=== PATIENT | female | born 1990 | race Two or more races ===

== ENCOUNTER 2018-09-12 21:53 | Outpatient (CLI) | payer OTHER ==
[2018-09-13] MEDS ORDERED: ZANTAC300 MG PO (09:07)
[2018-09-13] MEDS ORDERED: PRENATAL TABLE1 EAC1 PO (09:07)
== END 2018-09-13 08:51 | disposition still patient (30) ==
LOC: OBS/DEL 21:53
DX: O21.8 Other vomiting complicating pregnancy (principal); Z34.03 Encounter for supervision of normal first pregnancy, third trimester

== ENCOUNTER 2018-09-13 07:59 | Inpatient (IN) | payer OTHER ==
[~2018-09-13] VITALS: Ht 165.1 cm; Wt 112.0 kg
[2018-09-13] MEDS ORDERED: ZANTAC300 MG PO (09:07)
[2018-09-13] MEDS ORDERED: PRENATAL TABLE1 EAC1 PO (09:07)
== END 2018-09-16 10:38 | disposition home or self-care (01) | DRG 788 ==
LOC: OB/GYN 07:59 → LDR 07:59 → OB/GYN 18:47
PROVIDERS: ADMIT Specialist
PROC: 3E033VJ Introduction of Other Hormone into Peripheral Vein, Percutaneous Approach (ICD-10-PCS; 2018-09-13)
PROC: 4A1HXCZ Monitoring of Products of Conception, Cardiac Rate, External Approach (ICD-10-PCS; 2018-09-13)
PROC: 10D00Z1 Extraction of Products of Conception, Low, Open Approach (ICD-10-PCS; principal; 2018-09-13 17:00)
DX: O82 Encounter for cesarean delivery without indication (principal); O33.9 Maternal care for disproportion, unspecified; Z3A.39 39 weeks gestation of pregnancy; Z37.0 Single live birth